=== PATIENT | male | born 1970 | race Two or more races ===

== ENCOUNTER 2017-11-10 12:31 | Emergency (ER) | payer MEDICAID, OTHER ==
[~2017-11-10] VITALS: Ht 175.3 cm; Wt 79.4 kg
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
[2017-11-10] MEDS ORDERED: LORAZEPAM INJ 2 MG/ML VIAL IM ONE (13:00)
[2017-11-10] MEDS ORDERED: LORAZEPAM INJ 2 MG/ML VIAL ONE (13:02)
--- NOTE | 2017-11-10 14:17 | NUR ---
Patient discharged to home in stable condition. REMAINS IN CUSTODY. Written and verbal after care instructions given. Patient verbalizes understanding of instruction.
[2017-11-10 14:18] VITALS: BP 120/87
== END 2017-11-10 14:19 ==
LOC: ER 12:33
DX: F15.129 Other stimulant abuse with intoxication, unspecified (principal); R45.1 Restlessness and agitation; F17.200 Nicotine dependence, unspecified, uncomplicated; Z86.19 Personal history of other infectious and parasitic diseases
CPT/HCPCS: 96372; 99283; A4606; J2060; Z7610

== ENCOUNTER 2019-06-21 21:17 | Emergency (ER) | payer OTHER ==
[~2019-06-21] VITALS: Ht 182.9 cm; Wt 78.0 kg
[2019-06-21 21:28] VITALS: BP 133/78
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
[2019-06-21] MEDS ORDERED: TDAP [DIPH/PERTUSSIS/TET] 0.5 ML VIAL IM ONE ×2 (21:47→22:00)
== END 2019-06-21 23:18 ==
LOC: ER 21:19
DX: S01.01XA Laceration without foreign body of scalp, initial encounter (principal); S05.11XA Contusion of eyeball and orbital tissues, right eye, initial encounter; S09.8XXA Other specified injuries of head, initial encounter; F19.10 Other psychoactive substance abuse, uncomplicated; F17.200 Nicotine dependence, unspecified, uncomplicated; Z98.890 Other specified postprocedural states; Z60.2 Problems related to living alone; Z86.19 Personal history of other infectious and parasitic diseases; Z23 Encounter for immunization; Z02.89 Encounter for other administrative examinations; W22.8XXA Striking against or struck by other objects, initial encounter; Y93.89 Activity, other specified; Y92.89 Other specified places as the place of occurrence of the external cause; Y99.8 Other external cause status
CPT/HCPCS: 12001; 90471; 90715; 99283; 99406; A6403

== ENCOUNTER 2019-10-17 18:44 | Emergency (ER) | payer OTHER ==
[~2019-10-17] VITALS: Ht 177.8 cm; Wt 77.1 kg
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
--- NOTE | 2019-10-17 18:57 | NUR ---
SEEN AND EXAMINED BY
[2019-10-17] MEDS ORDERED: HYDROCODONE/APAP 10/325MG 1 EA TABLET PO ONE (19:00)
[2019-10-17] MEDS ORDERED: VANCOMYCIN 1 GM in IV D5W 250 ML IV ONE (19:00)
[2019-10-17] MEDS ORDERED: IBUPROFEN 600 MG TABLET PO ONE ×2 (19:00→20:16)
[2019-10-17] MEDS ORDERED: IV NS 0.9% 1,000 ML BAG IV ONE ×2 (19:00→19:30)
[2019-10-17] MEDS ORDERED: PIPERACILLIN /TAZOBACTAM 3.375 G in IV D5W 50 ML IV ONE (19:00)
[2019-10-17 19:09] LABS: BASOPHILS # (AUTO) 0.1 /CMM (0.0-0.2); BASOPHILS % (AUTO) 0.7 % (0.0-2.0); EOSINOPHILS % (AUTO) 0.8 % (0.0-6.0); HEMATOCRIT 45 % (39-51); HEMOGLOBIN 15.1 g/dL (13.5-17.5); LYMPHOCYTES # (AUTO) 2.1 /CMM (0.8-4.8); LYMPHOCYTES % (AUTO) 22.9 % (20.0-44.0); MEAN CORPUSCULAR HGB CONC 33 g/dl (31.0-36.0); MEAN CORPUSCULAR VOLUME 87 fL (80-96); MONOCYTES # (AUTO) 1.2 /CMM (0.1-1.30); MONOCYTES % (AUTO) 12.7 % (2.0-12.0); NEUTROPHILS # (AUTO) 5.8 /CMM (1.8-8.9); NEUTROPHILS % (AUTO) 62.9 % (43.0-81.0); PLATELET COUNT (AUTO) 256 /CMM (150-450); RED BLOOD CELL COUNT(AUTO) 5.21 MIL/uL (4.5-6.0); WHITE BLOOD COUNT (AUTO) 9.1 K/uL (4.3-11.0)
[2019-10-17 19:20] LABS: CALCIUM, SERUM 9.1 mg/dL (8.5-10.1); CREATININE 0.8 mg/dL (0.6-1.3); POTASSIUM 3.9 mmol/L (3.5-5.1)
--- NOTE | 2019-10-17 19:20 | NUR ---
IV LINE ESTABLISHED, BLOOD DRAWN AND SENT TO LAB.
[2019-10-17 19:25] LABS: ALBUMIN 3.3 g/dL (3.4-5.0); BILIRUBIN,DIRECT 0.1 mg/dL (0.0-0.2); BILIRUBIN,TOTAL 0.2 mg/dL (0.2-1.0); TOTAL PROTEIN, SERUM 7.1 g/dL (6.4-8.2)
--- NOTE | 2019-10-17 19:30 | NUR ---
ASSUMED CARE OF PT, PT IS IN BED, AWAKE, ALERT, -SOB, NAD NOTED, PT ON MONITOR, VS UPDATED.
--- NOTE | 2019-10-17 19:31 | NUR ---
PT TAKEN TO CT
[2019-10-17] MEDS ORDERED: IV NS 0.9% 250 ML IV ONE (19:53)
[2019-10-17] MEDS ORDERED: IOHEXOL-300 100 ML VIAL IV ONE (19:53)
[2019-10-17] MEDS ORDERED: CT SWABBABLE VALVE TRANS SET 1 EA INFUS.SET MC ONE (19:53)
[2019-10-17] MEDS ORDERED: HYDROCODONE/APAP 10/325MG 1 EA TABLET ONE (20:16)
--- NOTE | 2019-10-18 00:23 | NUR ---
Patient is resting comfortably in bed with eyes closed. Easily aroused. VSS
--- NOTE | 2019-10-18 01:53 | NUR ---
Patient is resting comfortably in bed with eyes closed. Easily aroused. VSS
--- NOTE | 2019-10-18 05:10 | NUR ---
VERBAL ORDER FROM DR TERESA TO ADMINISTER NORCO-.
[2019-10-18] MEDS ORDERED: HYDROCODONE/APAP 10/325MG 1 EA TABLET ONE (05:15)
--- NOTE | 2019-10-18 06:17 | NUR ---
Patient is resting comfortably in bed with eyes closed. Easily aroused. VSS
--- NOTE | 2019-10-18 07:26 | NUR ---
PT AWAKE ON BED, AAOX4, NOT IN RESPIRATORY DISTRESS, HOOKED TO MONITOR, KEPT RESTED AND COMFORTABLE, AWAITING JIG AND FIXTURE BUILDER APPRENTICE FOR PT DISCHARGED.
--- NOTE | 2019-10-18 07:32 | NUR ---
FOOD TRAY PROVIDED.
--- NOTE | 2019-10-18 09:01 | NUR ---
CALLED YARON SANDERS NO ANSWER
[2019-10-18] MEDS ORDERED: HYDROCODONE/APAP 5/325MG 1 EACH TABLET ONE (09:19)
[2019-10-18] MEDS ORDERED: HYDROCODONE/APAP 5/325MG 1 EACH TABLET PO ONE (09:30)
[2019-10-18 10:00] VITALS: BP 124/78
--- NOTE | 2019-10-18 10:00 | NUR ---
CALLED YARON SANDERS NO ANSWER.
--- NOTE | 2019-10-18 11:20 | NUR ---
YARON SANDERS AT BEDSIDE FOR EVAL.
--- NOTE | 2019-10-18 11:29 | NUR ---
Patient given written and verbal discharge instructions. Patient verbalizes understanding of instructions. Patient is ambulatory with steady gait. Refuses offer of longterm placement. Patient given list of available shelters in surrounding area.
--- NOTE | 2019-10-18 12:00 | NUR ---
Social service consult requested by GEORGES Torrez for homeless resources. Pt. is a 49 year old male who presented to the ED with 3 day history of progressively worsening swelling and redness to his nose. Patient was recently seen at an outside hospital and diagnosed with MRSA of the nares. SW met with the pt. bedside. Pt. is alert and oriented x 4. Pt. appeared unkempt and disheveled. Pt. is pleasant and cooperative with SW during the assessment. Pt. informed SW he has been on and off the streets. Pt. is currently on parole. SW offered pt. mcfp placement, however pt. declined stating, " My chief nursing officer Nick Spencer is helping me with housing." SW encouraged pt. to go to the [facility] pharmacy on [facility]. Pt. stated, he knows where it is and will go there. SW did give pt. the following list of homeless mcfp/resources: [facility] located at [address] [facility] ; [facility], [address] [place] [address], L. A [place] ; [facility] [place], [address] [facility], [facility]. [facility] ; [facility] Homeless Resource Directory which includes food stamps, transitional housing, showers and hot meals etc; Mental Health clinics such as [facility] ; [facility] ; Health clinics;[facility] and Alcohol treatment centers such as [facility] [place], ; [facility] Substance Abuse Hotline and [facility] . Homeless Patient waiver form was signed by the pt. and placed in pt's chart. No other social service needs are requested at this time.
== END 2019-10-18 11:30 | disposition home or self-care (01) ==
LOC: ER 18:47
DX: J34.0 Abscess, furuncle and carbuncle of nose (principal); R94.31 Abnormal electrocardiogram [ECG] [EKG]; F17.200 Nicotine dependence, unspecified, uncomplicated; Z90.89 Acquired absence of other organs; Z86.19 Personal history of other infectious and parasitic diseases; Z60.2 Problems related to living alone
CPT/HCPCS: 36415; 70487; 71045; 80048; 80076; 83605; 85025; 85730; 87040 ×2; 93005; 96365; 96368; 99284; J2543; J3370; J7030; J7050; J7060 ×2; Q9967

== ENCOUNTER 2020-05-14 22:46 | Inpatient (IN) | payer OTHER ==
[~2020-05-14] VITALS: Ht 177.8 cm; Wt 71.7 kg
--- NOTE | 2020-05-14 22:55 | NUR ---
SABA 839 FROM [place] FOR C/O LUE PAIN AND SWELLING. PER PT "I HAVE CELLULITIS" PT WAS SEEN AT [facility] RECENTLY, pt to bed 14, -sob, nad noted, started piv, +pain on lt arm; placed on monitor, vss, pending md gan
[2020-05-14] MEDS ORDERED: ONDANSETRON HCL/PF - ER 4 MG/2 ML VIAL IV ONE (23:00)
[2020-05-14] MEDS ORDERED: HYDROMORPHONE INJ 2 MG/ML DISP.SYRIN IV ONE (23:00)
--- NOTE | 2020-05-14 23:04 | NUR ---
CALLED NURSING SUP FOR MEDSURG BED
--- NOTE | 2020-05-14 23:06 | NUR ---
NAVIN LEPE TALKING TO [facility] AD[facility].
[2020-05-14] MEDS ORDERED: ONDANSETRON HCL/PF 4 MG/2 ML VIAL ONE (23:13)
[2020-05-14] MEDS ORDERED: HYDROMORPHONE INJ 2 MG/ML DISP.SYRIN ONE (23:13)
--- NOTE | 2020-05-14 23:38 | NUR ---
cate burk from [employer]; verbal auth given
[2020-05-14] MEDS ORDERED: IV NS 0.9% 1,000 ML IV PRN (23:45)
--- NOTE | 2020-05-14 23:45 | NUR ---
report given to gagan pedraza for taiwo pt will be transported to 1st floor
[2020-05-15] MEDS ORDERED: ACETAMINOPHEN 325 MG TABLET PO PRN
[2020-05-15] MEDS ORDERED: ONDANSETRON HCL/PF 4 MG/2 ML VIAL IVP PRN
[2020-05-15] MEDS ORDERED: Z GUARD REMEDY 2 OZ OINT TP PRN
[2020-05-15] MEDS ORDERED: MAGNESIUM HYDROXIDE 30 ML UDC PO PRN
[2020-05-15] MEDS ORDERED: ACETAMINOPHEN 650 MG/20.3 ML UDC PO PRN
[2020-05-15] MEDS ORDERED: MAG HYDROX/AL HYDROX/SIMETH 30 ML UDC PO PRN
--- NOTE | 2020-05-15 00:24 | NUR ---
pt transported to 2nd floor
[2020-05-15 00:30] VITALS: BP 150/90
[2020-05-15] MEDS ORDERED: VANCOMYCIN 1.5 GM in IV D5W 500ml IV SCH (00:30)
[2020-05-15] MEDS ORDERED: VANCOMYCIN 1 GM VIAL ONE (00:38)
--- NOTE | 2020-05-15 00:40 | NUR ---
RN ADMITTING NOTES PATIENT RECEIVED FROM ER, AMBULATORY A/O X 4. STABLE ON RA WITH BREATHING EVEN AND UNLABORED, NO SOB NOTED. NO SIGNS OF ACUTE DISTRESS. IV LOCATED ON R HAND #20. ALL BELONGINGS ACCOUNTED FOR. PATIENT ORIENTED TO ROOM AND STAFF. SKIN ASSESMENT DONE. VITALS TAKEN. SAFETY PRECAUTIONS IN PLACE WITH BED IN LOWEST POSITION, CALL LIGHT WITHIN REACH, BREAKS ON, SIDE RAILS UP. WILL CONTINUE TO MONITOR THROUGHOUT THE NIGHT.
--- NOTE | 2020-05-15 03:00 | NUR ---
MS RN NOTES PATIENT EXPERIENCING PAIN ON LEFT EXTREM. 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 PATIENT ANGRY AND AGITATED DUE TO DENIAL, OFFERED PRN TYLENOL AND OTHER ALTERNATIVES BUT PATIENT GOT ANGRY AND THRASHING. SECURITY CALLED.
--- NOTE | 2020-05-15 04:03 | NUR ---
MS RN NOTES PATIENT YELLING AND THRASHING IN HALLWAY COMPLAINING OF PAIN, REFUSES TO GO BACK TO ROOM. CALLED SECURITY. LOG BUYER ANITA AWARE OF BEHAVIOR.
--- NOTE | 2020-05-15 04:17 | NUR ---
MS RN NOTES PATIENT LEFT AMA, ESCORTED BY SECURITY DOWNSTAIRS. PATIENT REMOVED IV. MEDICAL BAND REMOVED. REFUSED TO SIGN AMA, RN FEDELYN WITNESS.
--- NOTE | 2020-05-15 04:18 | NUR ---
MS RN NOTES PETROGRAPHY TEACHER ANITA AWARE OF PATIENTS LEAVE.
[2020-05-15] MEDS ORDERED: PANTOPRAZOLE 40 MG TABLET.DR PO SCH (07:30)
== END 2020-05-15 04:16 | disposition left against medical advice (07) | DRG 383 ==
LOC: ER 22:47 → MEDSG2 05-15
PROVIDERS: ADMIT Registered Nurse; ATTEND Registered Nurse
DX: L03.114 Cellulitis of left upper limb (principal); E87.1 Hypo-osmolality and hyponatremia; F17.200 Nicotine dependence, unspecified, uncomplicated; L03.113 Cellulitis of right upper limb; B19.20 Unspecified viral hepatitis C without hepatic coma; Z59.0 Homelessness; R74.0 Nonspecific elevation of levels of transaminase and lactic acid dehydrogenase [LDH]; F15.10 Other stimulant abuse, uncomplicated; L40.9 Psoriasis, unspecified
CPT/HCPCS: 87081-TC; G0378; J1170; J2405; J3370; J7030; J7060

== ENCOUNTER 2020-06-04 16:42 | Emergency (ER) | payer OTHER ==
[~2020-06-04] VITALS: Ht 177.8 cm; Wt 79.4 kg
[2020-06-04 16:46] VITALS: BP 154/96
== END 2020-06-04 17:38 | disposition home or self-care (01) ==
LOC: ER 16:42
DX: S51.802A Unspecified open wound of left forearm, initial encounter (principal); Z86.19 Personal history of other infectious and parasitic diseases; Z90.89 Acquired absence of other organs; Z60.2 Problems related to living alone; X58.XXXA Exposure to other specified factors, initial encounter; Y93.89 Activity, other specified; Y92.89 Other specified places as the place of occurrence of the external cause; Y99.8 Other external cause status

== ENCOUNTER 2020-06-05 05:12 | Emergency (ER) | payer OTHER ==
[~2020-06-05] VITALS: Ht 175.3 cm; Wt 82.6 kg
[2020-06-05] MEDS ORDERED: diphenhydrAMINE HCL 50 MG/ML VIAL ONE ×2 (05:20→06:48)
[2020-06-05] MEDS ORDERED: HALOPERIDOL LACTATE INJ 5 MG/ML VIAL ONE (05:21)
[2020-06-05] MEDS ORDERED: LORAZEPAM INJ 2 MG/ML VIAL ONE (05:21)
[2020-06-05] MEDS ORDERED: HALOPERIDOL LACTATE INJ 5 MG/ML VIAL IM ONE (05:30)
[2020-06-05] MEDS ORDERED: LORAZEPAM INJ 2 MG/ML VIAL IM ONE (05:30)
[2020-06-05] MEDS ORDERED: diphenhydrAMINE HCL 50 MG/ML VIAL IM ONE (05:30)
--- NOTE | 2020-06-05 05:37 | NUR ---
PATIENT DENIES SUICIDAL IDEATION AND DENIES HOMICIDAL IDEATION.
[2020-06-05 05:50] LABS: BASOPHILS % (AUTO) 0.6 % (0.0-2.0); EOSINOPHILS % (AUTO) 1.8 % (0.0-6.0); HEMATOCRIT 36 % (39-51); HEMOGLOBIN 11.7 g/dL (13.5-17.5); LYMPHOCYTES # (AUTO) 1.6 /CMM (0.8-4.8); LYMPHOCYTES % (AUTO) 20.5 % (20.0-44.0); MEAN CORPUSCULAR HGB CONC 33 g/dl (31.0-36.0); MEAN CORPUSCULAR VOLUME 86 fL (80-96); MONOCYTES % (AUTO) 13.3 % (2.0-12.0); NEUTROPHILS % (AUTO) 63.8 % (43.0-81.0); PLATELET COUNT (AUTO) 384 /CMM (150-450); RED BLOOD CELL COUNT(AUTO) 4.14 MIL/uL (4.5-6.0); WHITE BLOOD COUNT (AUTO) 7.9 K/uL (4.3-11.0)
[2020-06-05 05:58] LABS: CALCIUM, SERUM 8.7 mg/dL (8.5-10.1); CARBON DIOXIDE 23 mmol/L (21-32); CHLORIDE 108 mmol/L (98-107); CREATININE 1.3 mg/dL (0.6-1.3); GLUCOSE 143 mg/dL (74-106); SODIUM SERUM 142 mmol/L (136-145); UREA NITROGEN, BLOOD 19 mg/dL (7-18)
[2020-06-05 06:03] LABS: ALANINE AMINOTRANSFERASE 74 U/L (12-78); ALBUMIN 3.2 g/dL (3.4-5.0); ALCOHOL, BLOOD < 3 mg/dL (0-0); ALKALINE PHOSPHATASE 79 U/L (46-116); ASPARTATE AMINOTRANSFERASE 50 U/L (15-37); BILIRUBIN,DIRECT 0.1 mg/dL (0.0-0.2); BILIRUBIN,TOTAL 0.5 mg/dL (0.2-1.0); TOTAL PROTEIN, SERUM 6.8 g/dL (6.4-8.2)
[2020-06-05 06:04] LABS: SALICYLATE 1.5 mg/dL (2.8-20.0)
[2020-06-05 06:05] LABS: ACETAMINOPHEN < 2 ug/ml (10-30)
--- NOTE | 2020-06-05 06:29 | NUR ---
PATIENT CAME TO ER BED 13 BIB RA C/O BIZARRE BEHAVIOR. PATIENT BECAME ERRATIC AND WAS YELLING AND CURSING AT [facility] RA UPON ARRIVAL. PATIENT IS UNABLE TO ANSWER QUESTIONS AT THIS TIME. PATIENT WAS PLACED INTO BED 13 AND WAS AGITATED BUT REDIRECTABLE. ADMITS TO METHAMPHETAMINE USE. AAOX2. NO SOB. CONNECTED TO MONITOR. SITTER IS AT BEDSIDE.
[2020-06-05] MEDS ORDERED: POTASSIUM CHLORIDE 20 MEQ TAB.PRT.SR PO ONE (06:30)
[2020-06-05 06:44] LABS: BILIRUBIN,URINE NEGATIVE (NEGATIVE); BLOOD, URINE SMALL Ery/uL (NEGATIVE); COLOR,URINE YELLOW (YELLOW); KETONES,URINE NEGATIVE (NEGATIVE); LEUKOCYTE ESTERASE ,URINE NEGATIVE (NEGATIVE); NITRITE, URINE NEGATIVE (NEGATIVE); PH,URINE 5.5 (5.0-8.0); PROTEIN,URINE NEGATIVE (NEGATIVE); UGLUCOSE NEGATIVE (NEGATIVE); UROBILINOGEN,URINE 0.2 EU/dL (0.2)
[2020-06-05 06:57] LABS: APPEARANCE,URINE CLEAR (CLEAR)
[2020-06-05] MEDS ORDERED: diphenhydrAMINE HCL 50 MG/ML VIAL IV ONE (07:00)
--- NOTE | 2020-06-05 12:00 | NUR ---
PT IS BEEN RE-EVALUATED BY . PT IS NOT SUICIDAL AND CLEARED FOR DISCHARGED.
--- NOTE | 2020-06-05 12:18 | NUR ---
Patient given written and verbal discharge instructions. Patient verbalizes understanding of instructions. Patient is ambulatory with steady gait. Refuses offer of usp placement. Patient given list of available shelters in surrounding area.
[2020-06-05 12:25] VITALS: BP 124/81
== END 2020-06-05 12:25 | disposition home or self-care (01) ==
LOC: ER 05:13
DX: F15.921 Other stimulant use, unspecified with intoxication delirium (principal); R45.1 Restlessness and agitation; R45.6 Violent behavior; R41.82 Altered mental status, unspecified; Z98.890 Other specified postprocedural states; Z86.19 Personal history of other infectious and parasitic diseases; Z90.89 Acquired absence of other organs; Z60.2 Problems related to living alone; Z59.0 Homelessness
CPT/HCPCS: 36415; 80048; 80076; 80305; 80307; 80329; 81001; 85025; 96372 ×2; 99284; G0480; J1200 ×2; J1630; J2060; 81000-TC

== ENCOUNTER 2020-06-05 13:09 | Emergency (ER) | payer OTHER ==
[~2020-06-05] VITALS: Ht 175.3 cm; Wt 82.6 kg
[2020-06-05 13:13] VITALS: BP 149/92
--- NOTE | 2020-06-05 13:20 | NUR ---
PT SEEN AND EXAMINED BY .
--- NOTE | 2020-06-05 13:26 | NUR ---
Patient discharged in custody in stable condition. Written and verbal after care instructions given. Patient verbalizes understanding of instruction.
== END 2020-06-05 13:29 | disposition home or self-care (01) ==
LOC: ER 13:13
DX: F15.10 Other stimulant abuse, uncomplicated (principal); R45.1 Restlessness and agitation; Z98.890 Other specified postprocedural states; Z02.89 Encounter for other administrative examinations; Z59.0 Homelessness; Z86.19 Personal history of other infectious and parasitic diseases; Z60.2 Problems related to living alone

== ENCOUNTER 2020-06-06 04:26 | Emergency (ER) | payer OTHER ==
[~2020-06-06] VITALS: Ht 177.8 cm; Wt 77.1 kg
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
--- NOTE | 2020-06-06 06:43 | NUR ---
Patient discharged to home in stable condition. Written and verbal after care instructions given. Patient verbalizes understanding of instruction. Pt ambulated with steady gait. Signed homeless discharge.
[2020-06-06 06:44] VITALS: BP 127/68
== END 2020-06-06 06:44 | disposition home or self-care (01) ==
LOC: ER 04:26
DX: S51.802D Unspecified open wound of left forearm, subsequent encounter (principal); Z98.890 Other specified postprocedural states; Z60.2 Problems related to living alone; X58.XXXD Exposure to other specified factors, subsequent encounter

== ENCOUNTER 2021-05-07 09:38 | Emergency (ER) | payer OTHER ==
[~2021-05-07] VITALS: Ht 177.8 cm; Wt 72.6 kg
[2021-05-07] MEDS ORDERED: OLANZAPINE 5 MG TABLET ONE (09:43)
--- NOTE | 2021-05-07 09:47 | NUR ---
The patient is , lapd, from [place], [place] behavior. Denies pain. In room air and denies SOB. Respiration regular and unlabored. Will continue to monitor the patient.
[2021-05-07] MEDS ORDERED: OLANZAPINE 5 MG TABLET PO ONE (10:00)
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
--- NOTE | 2021-05-07 12:46 | NUR ---
The patient is alert and oriented x3. Denies pain. In room air and denies SOB. Respiration regular and unlabored. Denies SI/HI. Patient discharged to home in stable condition. Written and verbal after care instructions given. Patient verbalizes understanding of instruction.
[2021-05-07 12:48] VITALS: BP 141/86
== END 2021-05-07 12:49 | disposition home or self-care (01) ==
LOC: ER 09:44
DX: R45.1 Restlessness and agitation (principal); F17.200 Nicotine dependence, unspecified, uncomplicated; Z86.19 Personal history of other infectious and parasitic diseases; Z98.890 Other specified postprocedural states; Z90.89 Acquired absence of other organs; Z60.2 Problems related to living alone; Z02.89 Encounter for other administrative examinations

== ENCOUNTER 2021-07-23 08:08 | Emergency (ER) | payer OTHER ==
[~2021-07-23] VITALS: Ht 177.8 cm; Wt 74.8 kg
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
--- NOTE | 2021-07-23 08:14 | NUR ---
DR WASHINGTON AT BEDSIDE FOR EVAL.
[2021-07-23] MEDS ORDERED: HALOPERIDOL LACTATE INJ 5 MG/ML VIAL IM ONE (08:30)
[2021-07-23] MEDS ORDERED: LORAZEPAM INJ 2 MG/ML VIAL IVP ONE (08:30)
[2021-07-23] MEDS ORDERED: diphenhydrAMINE HCL 50 MG/ML VIAL IM ONE (08:30)
[2021-07-23] MEDS ORDERED: TDAP [DIPH/PERTUSSIS/TET] 0.5 ML VIAL IM ONE ×2 (08:30→08:35)
[2021-07-23] MEDS ORDERED: IBUPROFEN 600 MG TABLET PO ONE (08:30)
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
[2021-07-23] MEDS ORDERED: LORAZEPAM INJ 2 MG/ML VIAL ONE (08:34)
[2021-07-23] MEDS ORDERED: diphenhydrAMINE HCL 50 MG/ML VIAL ONE (08:34)
[2021-07-23] MEDS ORDERED: HALOPERIDOL LACTATE INJ 5 MG/ML VIAL ONE (08:34)
[2021-07-23] MEDS ORDERED: IBUPROFEN 600 MG TABLET ONE (08:43)
[2021-07-23 09:09] LABS: BASOPHILS # (AUTO) 0.1 K/uL (0.0-0.2); BASOPHILS % (AUTO) 0.6 % (0.0-2.0); EOSINOPHILS % (AUTO) 1.2 % (0.0-6.0); HEMATOCRIT 37 % (39-51); HEMOGLOBIN 12.4 g/dL (13.5-17.5); LYMPHOCYTES # (AUTO) 1.4 K/uL (0.8-4.8); LYMPHOCYTES % (AUTO) 15.9 % (20.0-44.0); MEAN CORPUSCULAR HGB CONC 33 g/dl (31.0-36.0); MEAN CORPUSCULAR VOLUME 85 fL (80-96); MONOCYTES # (AUTO) 1.1 K/uL (0.1-1.30); MONOCYTES % (AUTO) 12.2 % (2.0-12.0); NEUTROPHILS # (AUTO) 6.3 K/uL (1.8-8.9); NEUTROPHILS % (AUTO) 70.1 % (43.0-81.0); PLATELET COUNT (AUTO) 280 K/uL (150-450); RED BLOOD CELL COUNT(AUTO) 4.39 MIL/uL (4.5-6.0)
--- NOTE | 2021-07-23 09:10 | NUR ---
PATIENT IS NOW ASLEEP, RESTING, NO DISTRESS NOTED. SITTER AT BEDSIDE 1:1. 4 POINT RESTRAINTS REMOVED AT THIS TIME.
[2021-07-23 09:23] LABS: CALCIUM, SERUM 9.1 mg/dL (8.5-10.1); CARBON DIOXIDE 23 mmol/L (21-32); CHLORIDE 107 mmol/L (98-107); CREATININE 1.2 mg/dL (0.6-1.3); GLUCOSE 132 mg/dL (74-106); POTASSIUM 3.7 mmol/L (3.5-5.1); SODIUM SERUM 144 mmol/L (136-145); UREA NITROGEN, BLOOD 23 mg/dL (7-18)
[2021-07-23 09:27] LABS: ALANINE AMINOTRANSFERASE 65 U/L (12-78); ALBUMIN 3.5 g/dL (3.4-5.0); ALCOHOL, BLOOD < 3 mg/dL (0-0); ALKALINE PHOSPHATASE 86 U/L (46-116); ASPARTATE AMINOTRANSFERASE 46 U/L (15-37); BILIRUBIN,DIRECT 0.1 mg/dL (0.0-0.2); BILIRUBIN,TOTAL 0.3 mg/dL (0.2-1.0); TOTAL PROTEIN, SERUM 7.1 g/dL (6.4-8.2)
[2021-07-23 09:38] LABS: ACETAMINOPHEN < 10 ug/ml (10-30)
[2021-07-23 09:50] LABS: BILIRUBIN,URINE Negative (NEGATIVE); COLOR,URINE YELLOW (YELLOW); LEUKOCYTE ESTERASE ,URINE Negative (NEGATIVE); NITRITE, URINE Negative (NEGATIVE); PH,URINE 5.5 (5.0-8.0); PROTEIN,URINE 30 mg/dl (NEGATIVE); UGLUCOSE Negative (NEGATIVE); UROBILINOGEN,URINE 0.2 EU/dL (0.2)
[2021-07-23 09:52] LABS: BACTERIA,URINE None seen /HPF (None Seen); RBC,URINE 0-2 /HPF (0-2); SQUAMOUS EPITHELIAL CELL,UR Rare /HPF (None Seen); WBC,URINE 0-2 /HPF (0-3)
--- NOTE | 2021-07-23 10:26 | NUR ---
THE PATIENT SLEEPING. RESPONSIVE TO VERBAL STIMULI. IN ROOM AIR. RESPIRATION REGULAR AND UNLABORED. ATTACHED TO THE MONITOR. WARM BLANKET PROVIDED FOR COMFORT. WILL CONTINUE TO MONITOR THE PATIENT.
--- NOTE | 2021-07-23 18:54 | NUR ---
THE PATIENT IS SLEEPING. RESPONSIVE TO VERBAL STIMULI. IN ROOM AIR. RESPIRATION REGULAR AND UNLABORED. IN NO APPARENT DISTRESS. WILL CONTINUE TO MONITOR THE PATIENT.
--- NOTE | 2021-07-23 23:15 | NUR ---
Patient discharged to home in stable condition. Written and verbal after care instructions given. Patient verbalizes understanding of instruction.
[2021-07-23 23:19] VITALS: BP 143/79
== END 2021-07-23 23:15 | disposition home or self-care (01) ==
LOC: ER 08:13
DX: M79.673 Pain in unspecified foot (principal); F15.129 Other stimulant abuse with intoxication, unspecified; Z20.822 Contact with and (suspected) exposure to COVID-19; Z59.0 Homelessness; S91.312A Laceration without foreign body, left foot, initial encounter; S91.311A Laceration without foreign body, right foot, initial encounter; Y93.01 Activity, walking, marching and hiking; Y92.89 Other specified places as the place of occurrence of the external cause; R00.0 Tachycardia, unspecified; Z86.19 Personal history of other infectious and parasitic diseases
CPT/HCPCS: 36415; 80048; 80076; 80143; 80307; 80320; 81001; 85025; 87426; 90471; 90715; 96372 ×2; 96374; 99285; C9803; J1200; J1630; J2060; G0480